=== PATIENT | male | born 1980 | race Caucasian/White ===

== ENCOUNTER 2017-07-03 23:37 | Emergency (ER) | payer OTHER ==
[2017-07-04] MEDS ORDERED: fentaNYL* 50 MCG/ML 2 ML VIAL (100 MCG VIAL) ONE (01:00)
[2017-07-04] MEDS ORDERED: Midazolam* 1 MG/ML 10 ML VIAL (10 MG) ONE (01:01)
--- NOTE | 2017-07-04 01:33 | CONS ---
CONSULTATION REPORT: DATE OF CONSULT: 07/04/17 - EMERGENCY DEPT. REQUESTING PHYSICIAN: Dr. Pandya in the emergency room. INDICATION: Esophageal foreign body. NARRATIVE: Mr. Gabriel is a pleasant 36-year-old gentleman who likely has a history of eosinophilic esophagitis who presented to [facility] with sensation of a foreign body. He was eating beef earlier in the day and felt like it became stuck. He told me that a similar episode occurred about 6 years ago and he was able to relieve it by himself after approximately 30 to 60 minutes, however, at this time it remained stuck. He did have a followup endoscopy after the last time and he believes he was diagnosed with eosinophilic esophagitis. He was treated with omeprazole and his symptoms have been under good control. He denies any heartburn. No family history of esophageal malignancies or issues. PAST MEDICAL HISTORY: None. SURGERIES: [place] teeth removal. MEDICATIONS: None. ALLERGIES: None. FAMILY HISTORY: No esophageal malignancies. REVIEW OF SYSTEMS: Twelve systems were reviewed, other than that mentioned in the HPI were unremarkable. PHYSICAL EXAM: Vital Signs: Temperature is 98.3, blood pressure is 133/83, pulse is 76. General: Well-appearing male, in no apparent distress. Alert, oriented, pleasant, fluent. HEENT: Mucous membranes are moist without lesions , ulcers or exudate. Neck is supple. Trachea is midline. Head is normocephalic, atraumatic. Heart: Regular rate and rhythm. Lungs: Clear to auscultation. Abdomen: Positive bowel sounds. Soft, nontender, nondistended. No hepato-splenomegaly, masses, rebound or guarding. Skin is warm and dry. LABORATORY DATA: Of note, none. ASSESSMENT AND PLAN: A 36-year-old gentleman with a likely history of eosinophilic esophagitis who presents with esophageal foreign body, beef. He will require an urgent EGD in the emergency room. I will make arrangements for it. [id number]/[facility] #: [id number] [facility]ITAL[facility]uan Alberto
[2017-07-04 02:40] VITALS: BP 116/64
--- NOTE | 2017-07-04 02:49 | ED ---
Grazyna Servin Rebecca, scribed for Felix Pnadya MD on 07/04/17 at 0223 . Complex/Multi-Sys Presentation - HPI Summary HPI Summary: Pt is a 39 y/o M BIBA from [place] who presents to ED for esophageal FB. At approximately 1830 the pt was eating beef when a piece became impacted in the esophagus. On triage, pain was moderate, ranked 4/10. Prior similar episode 1x about 6 years ago which he was able to correct himself, though he saw a GI for follow-up. Pt was seen after the chemical engineer, Dr. Montiel, had already completed the EGD procedure in the ED. After procedure, pt feels much better and sx are resolved. - History Of Current Complaint Chief Complaint: EDForeignBodyEsophag Time Seen by Provider: 07/04/17 02:15 Hx Obtained From: Patient Onset/Duration: Resolved Severity Currently: None Severity Initially: Moderate - 4/10 Location: Pain At: - Throat Alleviating Factor(s): EGD - Allergies/Home Medications Allergies/Adverse Reactions: Allergies Allergy/AdvReac Type Severity Reaction Status Date / Time No Known Allergies Allergy Verified 07/03/17 23:47 PMH/Surg Hx/FS Hx/Imm Hx Previously Healthy: Yes Endocrine/Hematology History: Denies: Hx Diabetes Cardiovascular History: Denies: Hx Coronary Artery Disease Infectious Disease History: No Infectious Disease History: Denies: Traveled Outside the [place] in Last 30 Days - Family History Known Family History: Positive: Other - Negative: esophageal malignancies - Social History Alcohol Use: Rare Substance Use Type: Reports: None Smoking Status (MU): Never Smoked Tobacco Review of Systems Negative: Fever Positive: Other - Esophageal FB with associated pain - resolved All Other Systems Reviewed And Are Negative: Yes Physical Exam - Summary Physical Exam Summary: After EGD: VITAL SIGNS: Reviewed. GENERAL: ~Patient is a well-developed and nourished male who is lying comfortable in the stretcher. Patient is not in any acute respiratory distress. HEAD AND FACE: No signs of trauma. No ecchymosis, hematomas or skull depressions. No sinus tenderness. EYES: PERRLA, EOMI x 2, No injected conjunctiva, no nystagmus. EARS: Hearing grossly intact. Ear canals and tympanic membranes are within normal limits. MOUTH: Oropharynx within normal limits. NECK: Supple, trachea is midline, no adenopathy, no JVD, no carotid bruit, no c- spine tenderness, neck with full ROM. CHEST: Symmetric, no tenderness at palpation LUNGS: Clear to auscultation bilaterally. No wheezing or crackles. CVS: Regular rate and rhythm, S1 and S2 present, no murmurs or gallops appreciated. EXTREMITIES: FROM in all major joints, no edema, no cyanosis or clubbing. NEURO: Alert and oriented x 3. No acute neurological deficits. Speech is normal and follows commands. SKIN: Dry and warm Triage Information Reviewed: Yes Vital Signs On Initial Exam: Initial Vitals Temp Pulse Resp BP Pulse Ox 98.3 F 76 18 133/83 99 07/03/17 23:45 07/03/17 23:45 07/03/17 23:45 07/03/17 23:45 07/03/17 23:45 Vital Signs Reviewed: Yes Diagnostics - Vital Signs Vital Signs Temp Pulse Resp BP Pulse Ox 07/04/17 02:00 72 20 94 07/04/17 01:54 74 18 119/66 96 07/04/17 01:53 75 17 96 07/04/17 01:40 83 16 128/77 99 07/04/17 01:25 105 16 149/87 99 07/04/17 01:10 87 16 134/85 99 07/03/17 23:45 98.3 F 76 18 133/83 99 - Laboratory Lab Statement: Any lab studies that have been ordered have been reviewed, and results considered in the medical decision making process. Complex Multi-Symp Course/Dx Assessment/Plan: Pt is a 39 y/o M BIBA from [place] who presents to ED for esophageal FB. At approximately 1830 the pt was eating beef when a piece became impacted in the esophagus. On triage, pain was moderate, ranked 4/10. Prior similar episode 1x about 6 years ago which he was able to correct himself, though he saw a GI for follow-up. Pt was seen after the chemical engineer, Dr. Montiel, had completed the EGD procedure in the ED. After procedure, pt feels much better and symptosm are resolved. After EGD, examination is unremarkable. Pt will be D/C to home with Dx of food impaction of esophagus with Rx for Protonix and a followup with GI. - Diagnoses Provider Diagnoses: Food impaction of esophagus - Physician Notifications Discussed Care Of Patient With: Claudio Montiel Time Discussed With Above Provider: 00:30 Instructed by Provider To: Other - Will see the pt in the ED and do EGD. Discharge - Sign-Out/Discharge Documenting (check all that apply): Discharge/Admit/Transfer - Discharge - Discharge Plan Condition: Stable Disposition: HOME Prescriptions: Pantoprazole TAB (NF) [Protonix TAB (NF)] 40 mg PO DAILY #30 tab Patient Education Materials: Esophageal Foreign Body (ED) Referrals: Claudio Montiel MD [Medical Doctor] - 3 Days [facility] REFERRAL [Outside] - 3 Days Additional Instructions: RETURN TO EMERGENCY DEPARTMENT FOR ANY RETURNING OR WORSENING SYMPTOMS. The documentation as recorded by the Grazyna yeung Rebecca accurately reflects the service I personally performed and the decisions made by , Felix Pandya MD.
--- NOTE | 2017-07-04 03:27 | PRO ---
DATE OF PROCEDURE: 07/04/17 - EMERGENCY DEPT PROCEDURE: EGD. INDICATION: Esophageal foreign body. REFERRING PHYSICIAN: None. MEDICATIONS GIVEN: 1. 100 mcg IV fentanyl. 2. 14 mg IV Versed. PROCEDURE IN DETAIL: After the EGD procedure, including the risks, benefits, and alternatives, not limited to perforation, surgery and/or were explained to Mr. Gabriel, written consent was then obtained. IV medication was given and a bite- block was placed between the teeth. An Olympus gastroscope was then inserted into the patient's mouth, advanced down the esophagus to the mid to distal esophagus. At that point there was a large meat bolus encountered. I did use the [place] [employer] to grab the bolus and it was removed in one large piece. I then reinserted the scope. He did have multiple rings throughout the entirety of the esophagus. The scope was advanced through the GE junction into the body of the stomach. Retroflex and forward views were unremarkable. The scope was advanced though the widely patent pylorus, into the duodenal bulb and into the distal duodenum, both of which were unremarkable. The scope was withdrawn into the esophagus where biopsies were obtained to rule out eosinophilic esophagitis. The scope was then withdrawn from the patient. He tolerated the procedure well and was returned to the recovery room in stable condition. IMPRESSION: 1. Complete upper endoscopy into the distal duodenum with esophageal foreign body removal and biopsies. 2. Esophageal foreign body, beef, removed with [place] Net. 3. Biopsies for eosinophilic esophagitis. 4. I will follow up on the biopsies. I have recommended the patient to follow up with his local database reporting consultant. [id number]/[facility] #: [id number] [facility]
== END 2017-07-04 03:00 | disposition home or self-care (01) ==
LOC: ED 23:37
DX: T18.128A Food in esophagus causing other injury, initial encounter (principal); T17.928A Food in respiratory tract, part unspecified causing other injury, initial encounter; X58.XXXA Exposure to other specified factors, initial encounter; Y92.9 Unspecified place or not applicable
CPT/HCPCS: 88305; 99156; 99157; 99284; J2250; J3010